=== PATIENT | female | born 1950 | race Caucasian/White ===

== ENCOUNTER 2017-01-17 15:22 | Emergency (ER) | payer OTHER ==
[~2017-01-17] VITALS: Ht 162.6 cm; Wt 78.6 kg
[~2017-01-17 15:22] MED LIST: ATIVAN1 MG PO; CALCIUM 600MG+D1 TAB PO; FISH OIL 1000MG1 CAP PO; NO HOME MEDICATIONS; OSCAL 500 TAB500 MG PO; PRILOSEC 20MG20 MG PO; ZOFRAN ODT4 MG PO
[2017-01-17 15:26] VITALS: TEMP 98.3
[2017-01-17 16:41] VITALS: BP 150/109; PULSE 69
== END 2017-01-17 16:42 | disposition home or self-care (01) ==
LOC: COL.ER 15:22
DX: I80.02 Phlebitis and thrombophlebitis of superficial vessels of left lower extremity (principal); I10 Essential (primary) hypertension

== ENCOUNTER → 2018-03-08 | Outpatient (CLI) | payer BC | LOC: MC.RAD 07:36 | DX: Z12.31 Encounter for screening mammogram for malignant neoplasm of breast (principal) ==

== ENCOUNTER 2023-10-21 17:14 | Emergency (ER) | payer BC ==
[~2023-10-21] VITALS: Ht 160 cm; Wt 90.0 kg
[2023-10-21 17:49] LABS: BASO # 0.1 K/mm3 (0.0-0.2); BASO % 0.5 % (0.0-2.0); EOS # 0.1 K/mm3 (0.0-0.7); EOS % 0.5 % (0.0-4.0); GRAN # 8.3 K/mm3 (1.4-6.5); GRAN % 75.8 % (42.2-75.2); HEMATOCRIT 43.5 % (37.0-47.0); HEMOGLOBIN 14.7 g/dl (12.5-16.0); LYMPH # 1.9 K/mm3 (1.2-3.4); LYMPH % 17.7 % (20.0-51.0); MEAN CELL VOLUME 94 fl (80.0-100.0); MEAN CORPUSCULAR HEMOGLOBIN 32 pg (27-31); MEAN CORPUSCULAR HGB CONC 34 g/dl (33.0-37.0); MEAN PLATELET VOLUME 10.3 fl (7.4-10.4); MONO # 0.6 K/mm3 (0.1-0.6); MONO % 5.2 % (1.7-9.3); PLATELET COUNT 227 K/mm3 (130-400); RED BLOOD COUNT 4.64 M/mm3 (4.10-5.30)
[2023-10-21 18:00] LABS: PROTHROMBIN TIME 11.1 SECONDS (9.7-12.8)
[2023-10-21 18:17] LABS: ALANINE AMINOTRANSFERASE 44 U/L (0-55); ALBUMIN 3.9 gm/dL (3.4-4.8); ALKALINE PHOSPHATASE 109 U/L (40-150); ANION GAP 11 mmol/L (7-16); AST,SGOT 49 U/L (5-34); BILIRUBIN,TOTAL 0.5 mg/dL (0.2-1.2); BLOOD UREA NITROGEN 19 mg/dL (10-20); CALCIUM 10.4 mg/dL (8.4-10.2); CARBON DIOXIDE 22 mmol/L (23-31); CHLORIDE 109 mmol/L (98-107); CREATINE KINASE 71 U/L (29-168); CREATININE, serum 0.99 mg/dL (0.57-1.11); GLUCOSE 164 mg/dL (70-99); POTASSIUM 4.2 mmol/L (3.5-4.5); SODIUM 142 mmol/L (136-145); TOTAL PROTEIN 7.3 gm/dL (6.2-8.1)
[2023-10-21 18:25] LABS: TROPONIN-I < 0.010 ng/mL (0.00-0.033)
[2023-10-21 18:32] LABS: C-REACTIVE PROTEIN 0.19 mg/dL (0.00-0.50)
[2023-10-21 20:04] VITALS: BP 158/88; PULSE 70; TEMP 98.4
== END 2023-10-21 20:04 | disposition home or self-care (01) ==
LOC: COL.ER 17:14
PROVIDERS: Emergency Medicine
DX: R10.13 Epigastric pain (principal); D72.829 Elevated white blood cell count, unspecified; R07.89 Other chest pain; Z90.49 Acquired absence of other specified parts of digestive tract

== ENCOUNTER 2024-08-15 11:15 | Emergency (ER) | payer SELFPAY ==
[~2024-08-15] VITALS: Ht 160 cm; Wt 81.8 kg
[2024-08-15 11:16] VITALS: TEMP 98
[2024-08-15 13:56] VITALS: BP 134/91; PULSE 68
== END 2024-08-15 14:10 | disposition home or self-care (01) ==
LOC: COL.ER 11:15
DX: S02.40CA Maxillary fracture, right side, initial encounter for closed fracture (principal); S02.2XXA Fracture of nasal bones, initial encounter for closed fracture; S01.411A Laceration without foreign body of right cheek and temporomandibular area, initial encounter; S81.011A Laceration without foreign body, right knee, initial encounter; W01.198A Fall on same level from slipping, tripping and stumbling with subsequent striking against other object, initial encounter; Y93.01 Activity, walking, marching and hiking; Y92.219 Unspecified school as the place of occurrence of the external cause